=== PATIENT | male | born 1980 | race Caucasian/White ===

== ENCOUNTER 2020-02-10 18:24 | Emergency (ER) | payer MEDICAID, OTHER ==
[2020-02-10 18:31] VITALS: BP 144/93
[2020-02-10] MEDS ORDERED: NORMAL SALINE 1000 ML 1,000 ML IV ONE (19:18)
[2020-02-10] MEDS ORDERED: ONDANSETRON HCL INJ/PF 4 MG/2 ML SDV IV ONE (19:19)
[2020-02-10] MEDS ORDERED: DIPHENHYDRAMINE HCL 50 MG/ML VIAL IV ONE (19:20)
--- NOTE | 2020-02-10 19:21 | ER Document Report ---
ED Medical Screen (RME) - General Chief Complaint: Headache Stated Complaint: headache Time Seen by Provider: 02/10/20 19:11 Primary Care Provider: RIVKA FREEDMAN [Primary Care Provider] - Follow up as needed Notes: Patient is a 39-year-old male who presents emergency department with a chief complaint of a headache to the right side of his head. States that it started a few hours ago. Denies any vomiting. Patient admits to drinking a lot of caffeine. Patient reports that he has not been sleeping well. Exam: Alert and oriented. I have greeted and performed a rapid initial assessment of this patient. A comprehensive ED assessment and evaluation of the patient, analysis of test results and completion of medical decision making process will be conducted by an additional ED providers. Physical Exam - Vital signs Vitals: Temp Pulse Resp BP Pulse Ox 98.2 F 72 16 144/93 H 98 02/10/20 18:30 02/10/20 18:30 02/10/20 18:30 02/10/20 18:30 02/10/20 18:30 Course - Vital Signs Vital signs: Temp Pulse Resp BP Pulse Ox 98.2 F 72 16 144/93 H 98 02/10/20 18:30 02/10/20 18:30 02/10/20 18:30 02/10/20 18:30 02/10/20 18:30 Doctor's Discharge - Discharge Referrals: RIVKA FREEDMAN [Primary Care Provider] - Follow up as needed
[2020-02-10 20:31] LABS: ABSOLUTE EOSINOPHILS # (AUTO) 0.2 10^3/uL (0.0-0.6); ABSOLUTE MONOCYTES (AUTO) 0.6 10^3/uL (0.1-1.4); ABSOLUTE NEUT (AUTO) 4.9 10^3/uL (1.7-8.2); BASOPHILS % (AUTO) 0.4 % (0-2); EOSINOPHILS % (AUTO) 2.1 % (0-6); HEMATOCRIT 40.5 % (37.9-51.0); HEMOGLOBIN 13.9 g/dL (13.5-17.0); MEAN CORPUSCULAR HEMOGLOBIN 29.3 pg (27.0-33.4); MEAN CORPUSCULAR HGB CONC 34.3 g/dL (32.0-36.0); MEAN CORPUSCULAR VOLUME 86 fl (80-97); MONOCYTES % (AUTO) 7.6 % (3-13); PLATELET COUNT 197 10^3/uL (150-450); RED BLOOD COUNT 4.73 10^6/uL (4.35-5.55); RED CELL DISTRIBUTION WIDTH 14.3 % (11.5-14.0); SEGMENTED NEUTROPHILS % (AUTO) 63.9 % (42-78); TOTAL CELLS COUNTED % (AUTO) 100 %; WHITE BLOOD COUNT 7.6 10^3/uL (4.0-10.5)
[2020-02-10 20:40] LABS: APPEARANCE,URINE CLEAR; BILIRUBIN,URINE NEGATIVE (NEGATIVE); COLOR,URINE STRAW; GLUCOSE, URINE NEGATIVE (NEGATIVE); KETONES,URINE NEGATIVE (NEGATIVE); LEUKOCYTE ESTERASE,URINE NEGATIVE (NEGATIVE); NITRITE,URINE NEGATIVE (NEGATIVE); PROTEIN,URINE NEGATIVE (NEGATIVE); URINE SPECIFIC GRAVITY 1.005; UROBILINOGEN,URINE NEGATIVE mg/dL (<2.0)
[2020-02-10 20:57] LABS: ALBUMIN 4.8 g/dL (3.5-5.0); ALKALINE PHOSPHATASE 45 U/L (38-126); ANION GAP 9 (5-19); ASPARTATE AMINO TRANSFERASE 27 U/L (17-59); BILIRUBIN,TOTAL 0.8 mg/dL (0.2-1.3); BLOOD UREA NITROGEN 12 mg/dL (7-20); CALCIUM 9.8 mg/dL (8.4-10.2); CARBON DIOXIDE 27 mmol/L (22-30); CHLORIDE 102 mmol/L (98-107); GLUCOSE 90 mg/dL (75-110); POTASSIUM 4.3 mmol/L (3.6-5.0); TOTAL PROTEIN 7.8 g/dL (6.3-8.2)
[2020-02-11] MEDS ORDERED: PROCHLORPERAZINE EDISYLATE INJ 10 MG/2 ML VIAL ONE (00:53)
[2020-02-11] MEDS ORDERED: KETOROLAC TROMETHAMINE INJ/PF 30 MG/1 ML SDV ONE (00:53)
--- NOTE | 2020-02-11 05:02 | ER Document Report ---
ED Headache - General Chief Complaint: Headache Stated Complaint: headache Time Seen by Provider: 02/10/20 19:11 Primary Care Provider: RIVKA FREEDMAN [NO LOCAL MD] - Follow up as needed Mode of Arrival: Ambulatory Information source: Patient Notes: Patient is a 39-year-old male who presents emergency department with a chief complaint of a headache to the right side of his head. States that it started a few hours ago. Denies any vomiting. Patient admits to drinking a lot of caffeine. Patient reports that he has not been sleeping well and has been under a lot of stress. He denies history of migraines in the past. He has not tried any medications for his symptoms. Past Medical History - General Information source: Patient - Social History Smoking Status: Never Smoker Frequency of alcohol use: None Drug Abuse: None Family History: Reviewed & Not Pertinent - Medical History Medical History: Negative Surgical Hx: Negative - Immunizations Immunizations up to date: Yes Review of Systems - Review of Systems Neurological/Psychological: Headaches -: Yes All other systems reviewed and negative Physical Exam - Vital signs Vitals: Temp Pulse Resp BP Pulse Ox 98.2 F 72 16 144/93 H 98 02/10/20 18:30 02/10/20 18:30 02/10/20 18:30 02/10/20 18:30 02/10/20 18:30 - Notes Notes: PHYSICAL EXAMINATION: GENERAL: Well-appearing, well-nourished and in no acute distress. HEAD: Atraumatic, normocephalic. EYES: Pupils equal round and reactive to light, extraocular movements intact, sclera anicteric, conjunctiva are normal. ENT: Nares patent, oropharynx clear without exudates. Moist mucous membranes. NECK: Normal range of motion, supple without lymphadenopathy LUNGS: Breath sounds clear to auscultation bilaterally and equal. No wheezes rales or rhonchi. HEART: Regular rate and rhythm without murmurs ABDOMEN: Soft, nontender, nondistended abdomen. No guarding, no rebound. No masses appreciated. Musculoskeletal: Normal range of motion, no pitting or edema. No cyanosis. NEUROLOGICAL: Cranial nerves grossly intact. Normal speech, normal gait. Normal sensory, motor exams PSYCH: Normal mood, normal affect. SKIN: Warm, Dry, normal turgor, no rashes or lesions noted. Course - Re-evaluation Re-evalutation: Medications given by nurse, patient reports ready to leave prior to completion of IV fluids. Headache resolved. Headache had a gradual onset, did not reach max intensity immediately and patient has no neck pain or nuchal rigidity. - Vital Signs Vital signs: Temp Pulse Resp BP Pulse Ox 98.2 F 72 16 144/93 H 98 02/10/20 18:30 02/10/20 18:30 02/10/20 18:30 02/10/20 18:30 02/10/20 18:30 - Laboratory Results Result Diagrams: 02/10/20 19:56 02/10/20 19:56 Laboratory Results Interpreted: 02/10/20 19:56 RDW 14.3 H Critical Laboratory Results Reviewed: No Critical Results - Radiology Results Critical Radiology Results Reviewed: No Critical Results Discharge - Discharge Clinical Impression: Headache Qualifiers: Headache type: unspecified Headache chronicity pattern: unspecified pattern Intractability: not intractable Qualified Code(s): R51.9 - Headache, unspecified Condition: Stable Disposition: HOME, SELF-CARE Referrals: ANGELO COYNE MD [ACTIVE STAFF] - Follow up as needed
== END 2020-02-11 01:48 | disposition home or self-care (01) ==
LOC: ER 18:24
DX: R51.9 Headache, unspecified (principal)
CPT/HCPCS: 36415; 80053; 81001; 85025; 99283